=== PATIENT | male | born 1980 | race Caucasian/White ===

== ENCOUNTER 2022-10-27 09:42 | Emergency (ER) | payer OTHER, SELFPAY ==
[2022-10-27] VITALS (11 sets, daily range): BP systolic 110–120; BP diastolic 59–68; PULSE 55–73; RESP 12–20; TEMP 37; O2SAT 92–96; BMI 32.3
--- NOTE | 2022-10-27 09:55 | PC.NURSE ---
patient developed back pain years ago does not recall to attribute it to any injuries. He was playing soft ball yesterday and hurt his back and had to go home and lay on the couch. He had to sleep on his left side all night and states that his pain was 10/10 and sharp when moving. He states that the fentanyl the medics gave him helped
--- NOTE | 2022-10-27 10:11 | ED.BACK ---
HPI - Back Pain/Injury General Chief Complaint: Back Pain/Injury Stated Complaint: Lower back pain Time Seen by Provider: 10/27/22 09:58 Source: patient and EMS Mode of arrival: Ambulatory Limitations: no limitations History of Present Illness HPI Narrative: This is a 42-year-old male with history of gout, chronic asthma and uses CPAP who presents with low back pain. Patient states the day before he was playing softball he felt a tweak in his back and then he participated in a [employer] tank, and when he fell from the bunk take seat he had significant increase in his back pain and has had persistent back pain since then into today. Patient has had a history of chronic back pain typically 2 weeks his back will usually improve over time. He states today's episode is the worse when he is had ever. He states he did not have any trauma or injury otherwise. He states he was assisted to his car and pain continued to worsen overnight. He denies any radiation down his legs, no paresthesias, no loss of bowel or bladder control, no loss of sensation. Patient states he can move his legs but does have increased pain when he moves them. Any sort of movement makes patient very uncomfortable. Patient had ibuprofen last night at 7:45 p.m. he is not had anything additional since then. Patient states he is never had any imaging of his back before. He has had prior surgeries 7 times on his hands and fingers but no prior back surgeries. No known drug allergies. Occasional cigar, occasional alcohol, no illicit. He follows with the [facility] for primary care. Patient came via EMS, received fentanyl EN route which has had improvement in his back pain. Related Data Previous Rx's Medication Instructions Recorded diazepam 10 mg tablet (Valium) 10 mg PO TID PRN muscle spasm #10 10/27/22 tabs meloxicam 7.5 mg tablet 7.5 mg PO BID PRN pain #14 tabs 10/27/22 ondansetron 4 mg disintegrating 4 mg PO Q6H PRN nausea and 10/27/22 tablet vomiting #7 tabs oxycodone 5 mg tablet 5 mg PO Q6H PRN pain #10 tabs 10/27/22 Allergies Allergy/AdvReac Type Severity Reaction Status Date / Time No Known Drug Allergies Allergy Verified 10/27/22 09:51 Review of Systems Review of Systems ROS Unobtainable: All systems reviewed & are unremarkable except as noted in HPI and below Patient History Social History Smoking Status: Current some day smoker Smoking Status: Current some day smoker tobacco type: cigars alcohol intake frequency: 0-2 drinks per day Substance Use Type: does not use Exam Narrative Exam Narrative: GENERAL: Alert and oriented x three, obese male in moderate distress HEENT: Head normocephalic, atraumatic, EOMI, pupils reactive, face symmetric, moist mucous membranes NECK: Supple, full range of motion CARDIOVASCULAR: Regular rate and rhythm without murmurs, rubs or gallops. RESPIRATORY: Breath sounds equal bilaterally, no wheezes rales or rhonchi. ABDOMEN: Soft, nontender. Normoactive bowel sounds all 4 quadrants. No guarding or rebound, rigidity, no mass : No CVA tenderness BACK: No cervical, thoracic or lumbar vertebral point tenderness. Patient has decreased range of motion of the back, he is most comfortable lying on his side.. Rectal exam is deferred. Muscle strength is 5/5 in lower extremities, DTRs are 2/4 and lower extremities. Dorsalis pedis and tibialis pulses are 2+ and lower extremities. Sensation is intact in the lower extremities. 2+ EXTREMITIES: Normal range of motion, no clubbing or edema. Neurovascularly intact NEUROLOGICAL: Cranial nerves II through XII grossly intact. Moving all extremities SKIN: Warm, dry, no petechiae, no rashes or lesions. Initial Vital Signs Initial Vital Signs: Vital Signs Temperature 98.6 F 10/27/22 09:46 Pulse Rate 67 10/27/22 09:46 Respiratory Rate 20 10/27/22 09:46 Blood Pressure 120/68 10/27/22 09:46 Pulse Oximetry 96 10/27/22 09:46 Oxygen Delivery Method Room Air 10/27/22 09:46 Course Orders Ordered: ED Orders 10/27/22 10:24 XR lumbar spine 2-3V Stat Discontinued Medications Hydrocodone Bitart/Acetaminophen (Hydrocodone/Acet 5/325 Tablet) 2 tab PO NOW ONE Stop: 10/27/22 13:19 Last Admin: 10/27/22 13:39 Dose: 2 tab Documented By: JOSE Diazepam (Diazepam 5 Mg Tablet) 10 mg PO NOW ONE Stop: 08/11/23 10:25 Last Admin: 10/27/22 10:45 Dose: 10 mg Documented By: JOSE Ketorolac Tromethamine (Ketorolac 30 Mg/Ml Vial) 15 mg IV NOW ONE Stop: 10/27/22 10:25 Last Admin: 10/27/22 10:45 Dose: 15 mg Documented By: JOSE Vital Signs Vital signs: Vital Signs - 8 hr 10/27/22 11:30 10/27/22 12:00 10/27/22 12:30 Pulse Rate 63 60 55 L Respiratory Rate Blood Pressure Pulse Oximetry 92 93 94 Oxygen Delivery Method 10/27/22 13:00 10/27/22 13:30 10/27/22 14:19 Pulse Rate 65 63 73 Respiratory Rate 12 Blood Pressure 119/66 Pulse Oximetry 96 94 95 Oxygen Delivery Method Room Air MDM - Back Pain/Injury Imaging Data Lumbar xray: Radiologist's Impression: [address] [address] XRay Report Signed Patient: Neo Patterson MR#: [id number] : 1980 Acct:[id number] Age/Sex: 42 / M Date of Service: 10/27/22 Loc: ED Accession Number: [id number] ?? Procedure: XR lumbar spine 2-3V Ordering Provider: Melyssa Hair D.O. PROCEDURE:? XR LUMBAR SPINE 2-3V ? INDICATIONS:? acute on chronic lbp, no prior imaging ? TECHNIQUE:? 3 views of the lumbar spine were acquired.? ? COMPARISON:? None. ? FINDINGS:? ? Bones:? 5 [id number] vertebrae are present.? There is normal bony alignment.? No vertebral body compression fractures.? No suspicious bony lesions.? Mild degenerative disc disease at L4-L5 and L5-S1. ? Soft tissues:? Overlying bowel gas pattern is normal.? No suspicious soft tissue calcifications.? ? ? IMPRESSION:? ? 1. No acute osseous abnormality. 2. Mild degenerative disc disease. ? ? Dictated by: Satish Odom M.D. on 10/27/2022 at 11:45 ? ? Approved by: Satish Odom M.D. on 10/27/2022 at 11:46?? MDM Narrative Medical decision making narrative: 42-year-old male comes to the emergency department with the acute on chronic low back pain. Patient does not have any red flag symptoms he has never had imaging in the past so will have a screening lumbar x-ray. Received fentanyl which was helpful in route, does not have any paresthesias or other saddle anesthesia or weakness with normal strength sensation and neurovascularly intact. Patient given additional Toradol as well as muscle relaxer. Lumbar spine xray shows some degenerative change no other acute abnormalities. Patient has had some improvement with Toradol and Valium. He still has some discomfort is improved. Will give additional dose of oral pain medication, discharged home. Patient was feeling nauseated after pain medications so was given a prescription for Zofran. Quite uncomfortable did use a walker to ambulate out but was able to. Discussed with patient plan for discharge home with pain management, follow up with primary care, reviewed red flag symptoms with patient and his as well for return precautions. Patient family feel comfortable with this plan. Discharge Plan Departure Patient Disposition: Home Clinical Impression: Low back pain Instructions: DI for Low Back Pain Activity Restrictions/Additional Instructions: Follow-up with your physician in the next week for recheck if your symptoms have not significantly improved. If you are having persistent recurrent back pain they may refer you for physical therapy. You may take Tylenol up to a 1000 mg every 6 hours. You may take meloxicam 1 tablet every 12 hours as needed for pain. Do not take other NSAIDs such as ibuprofen, leave or naproxen with this medication. You may take Valium 1 tablet every 8 hours as needed for muscle spasm. This medication can make you sleepy do not drive, perform hazardous activities or make any major decisions while taking it. Prescription sent to [facility] in [place]. Please return for rapidly worsening symptoms, uncontrolled pain, new weakness, loss of sensation, loss of bowel or bladder control, mA to lift or move your extremities or other new or concerning changes. Prescriptions: New diazepam [Valium] 10 mg tablet 10 mg PO TID PRN (Reason: muscle spasm) Qty: 10 0RF oxycodone 5 mg tablet 5 mg PO Q6H PRN (Reason: pain) Qty: 10 0RF meloxicam 7.5 mg tablet 7.5 mg PO BID PRN (Reason: pain) Qty: 14 0RF ondansetron 4 mg tablet,disintegrating 4 mg PO Q6H PRN (Reason: nausea and vomiting) Qty: 7 0RF Stand Alone Forms: Patient Portal/API
--- NOTE | 2022-10-27 10:24 | DI.RAD.S_ITS ---
PROCEDURE: XR LUMBAR SPINE 2-3V INDICATIONS: acute on chronic lbp, no prior imaging TECHNIQUE: 3 views of the lumbar spine were acquired. COMPARISON: None. FINDINGS: Bones: 5 [id number] vertebrae are present. There is normal bony alignment. No vertebral body compression fractures. No suspicious bony lesions. Mild degenerative disc disease at L4-L5 and L5-S1. Soft tissues: Overlying bowel gas pattern is normal. No suspicious soft tissue calcifications. IMPRESSION: 1. No acute osseous abnormality. 2. Mild degenerative disc disease. Dictated by: Satish Odom M.D. on 10/27/2022 at 11:45 Approved by: Satish Odom M.D. on 10/27/2022 at 11:46
[2022-10-27] MEDS: diazePAM 5 MG TABLET 10 MG PO (10:45)
[2022-10-27] MEDS: KETOROLAC 30 MG/ML VIAL 15 MG IV (10:45)
[2022-10-27] MEDS: HYDROCODONE/ACET 5/325 TABLET 2 TAB PO (13:39)
== END 2022-10-27 14:21 | disposition home or self-care (01) ==
PROVIDERS: Emergency Provider Emergency Medicine
DX: M54.50 Low back pain, unspecified (principal)
CPT/HCPCS: 72100; 96374; 99284; J1885

== ENCOUNTER 2023-11-29 21:36 | Emergency (ER) | payer OTHER, SELFPAY ==
[2023-11-29 21:45] VITALS: BP 144/86; PULSE 71; RESP 16; TEMP 37.2; O2SAT 96; BMI 33.0
--- NOTE | 2023-11-29 22:04 | DI.RAD.S_ITS ---
PROCEDURE: XR KNEE RT 3V INDICATIONS: pain/hurts to bend and walk TECHNIQUE: 3 views of the knee were acquired. COMPARISON: None. FINDINGS: Bones: No fractures or dislocations. No suspicious bony lesions. Soft tissues: Small joint effusion. No suspicious soft tissue calcifications. IMPRESSION: No fracture identified. Small joint effusion. Dictated by: Mac Montiel M.D. on 11/29/2023 at 22:37 Approved by: Mac Montiel M.D. on 11/29/2023 at 22:37
[2023-11-29] MEDS: KETOROLAC 30 MG/ML VIAL IM (22:07)
--- NOTE | 2023-11-30 00:21 | ED.EXTPRO ---
HPI - Extremity Problem General Chief complaint: Extremity Problem,Nontraumatic Stated complaint: rt knee pain, no known injury Time Seen by Provider: 11/30/23 00:05 Source: patient Mode of arrival: Wheelchair History of Present Illness HPI Narrative: 43-year-old male history of gout on allopurinol who presents with complaint of right knee pain worsening last night into today. Hurts to bend, weightbear and fully straighten it. Sitting still is the most comfortable position with a flexed. Most painful to fully straight. Patient states not weak but is uncomfortable. Two days ago had a stationary bike ride and he felt tired afterwards but has felt that way before pain has increased since then. Tried diclofenac cream without any improvement. Patient states he has had history of gout in his feet but states it feels very much different. Denies any fevers, no chest pain or shortness of breath no GI or urinary symptoms. States pain seems to be localized to the joint itself but also a little bit off to the right in the lateral portion. Patient has had prior joint issues with his left knee and developed irritation that was not clearly having a source in the past but not on the left side. He does not recall any other injury. Patient states no prior surgery to the knee. Occasional tobacco, occasional alcohol, no recreational drugs. Related Data Previous Rx's Medication Instructions Recorded diazepam 10 mg tablet (Valium) 10 mg PO TID PRN muscle spasm #10 10/27/22 tabs meloxicam 7.5 mg tablet 7.5 mg PO BID PRN pain #14 tabs 10/27/22 ondansetron 4 mg disintegrating 4 mg PO Q6H PRN nausea and 10/27/22 tablet vomiting #7 tabs oxycodone 5 mg tablet 5 mg PO Q6H PRN pain #10 tabs 10/27/22 hydrocodone 5 mg-acetaminophen 325 1 tab PO Q6H PRN pain #7 tabs 11/30/23 mg tablet Allergies Allergy/AdvReac Type Severity Reaction Status Date / Time No Known Drug Allergies Allergy Verified 11/29/23 21:57 Review of Systems Review of Systems ROS Unobtainable: All systems reviewed & are unremarkable except as noted in HPI and below Patient History Social History Smoking Status: Current some day smoker Smoking Status: Current some day smoker tobacco type: cigars alcohol intake frequency: 0-2 drinks per day Substance Use Type: does not use Exam Narrative Exam Narrative: GENERAL: Alert and oriented x three, male in mild distress. HEENT: Head normocephalic, atraumatic, EOMI, pupils reactive, face symmetric, moist mucous membranes NECK: Supple, full range of motion EXTREMITIES: Decreased range of motion patient is able to extend his leg but is uncomfortable, he is able to hold it flexed more comfortably but still hurts. No significant swelling right compared to left. Patient has some tenderness over the right lateral knee above the tibial plateau but lateral to the patella. He does not have any bony tender of the foot tib-fib, no tenderness over the patella tendon or patella itself, no tenderness over the quad. Does have discomfort with movement of the knee. No ballotable effusion, no clubbing or edema. Neurovascularly intact, sensation is intact. Cap refill less than 2 seconds. No significant warmth erythema in comparison [id number]. NEUROLOGICAL: Cranial nerves II through XII grossly intact. Moving all extremities SKIN: Warm, dry, no petechiae, no rashes or lesions. Initial Vital Signs Initial Vital Signs: Vital Signs Temperature 99.0 F 11/29/23 21:45 Pulse Rate 71 11/29/23 21:45 Respiratory Rate 16 11/29/23 21:45 Blood Pressure 144/86 H 11/29/23 21:45 Pulse Oximetry 96 11/29/23 21:45 Oxygen Delivery Method Room Air 11/29/23 21:45 Course Orders Ordered: ED Orders 11/29/23 22:04 XR knee RT 3V Stat Discontinued Medications Hydrocodone Bitart/Acetaminophen (Hydrocodone/Acet 5/325 Prepack) 1 bottle MISC DIRECTED ONE Stop: 11/30/23 00:34 Last Admin: 11/30/23 00:41 Dose: 1 bottle Documented By: AB Ketorolac Tromethamine (Ketorolac 30 Mg/Ml Vial) 30 mg IM NOW ONE Stop: 11/29/23 22:05 Last Admin: 11/29/23 22:07 Dose: 30 mg Documented By: BS Vital Signs Vital signs: Vital Signs - 8 hr 11/29/23 21:45 11/30/23 00:49 Temperature 99.0 F Pulse Rate 71 58 L Respiratory Rate 16 16 Blood Pressure 144/86 H 129/70 Pulse Oximetry 96 96 Oxygen Delivery Method Room Air Room Air MDM - Extremity (Nontraumatic) Imaging Data Extremity x-ray #1: Radiologist's Impression: Close Knee X-Ray (Signed) Mac Montiel - 11/29/23 Lumbar Spine X-Ray (Signed) Zoila Odomavelina - 10/27/22 Launch?[address] [address] XRay Report Signed Patient: Neo Patterson MR#: [id number] : 1980 Acct:[id number] Age/Sex: 43 / M Date of Service: 11/29/23 Loc: ED Accession Number: [id number] Procedure: XR knee RT 3V Ordering Provider: Melyssa Hair D.O. PROCEDURE: XR KNEE RT 3V INDICATIONS: pain/hurts to bend and walk TECHNIQUE: 3 views of the knee were acquired. COMPARISON: None. FINDINGS: Bones: No fractures or dislocations. No suspicious bony lesions. Soft tissues: Small joint effusion. No suspicious soft tissue calcifications. IMPRESSION: No fracture identified. Small joint effusion. Dictated by: Mac Montiel M.D. on 11/29/2023 at 22:37 Approved by: Mac Montiel M.D. on 11/29/2023 at 22:37 [facility] Narrative Medical decision making narrative: 43-year-old male increased right knee pain does have a small joint effusion on x-ray. Uses a stationary bike regularly did notice a little bit increased irritation right afterwards the day before then started having increasing pain over the last 24-48 hours. He is able to straighten and flex the knee but is most comfortable flexed. Patient does not have obvious effusion on examination or swelling. No clear warmth or erythema. Has had a history of gout but states not in this location and feels much different has not had any flares and some time. He is on allopurinol daily. Has had joint issues with his opposite knee without clear precipitating event. X-ray shows small joint effusion. Patient had Toradol which was helpful. Discussed with patient would like to do watchful waiting, we will give short course of pain medication, crutches so patient can weightbear as tolerated. Like him to follow up in the next 24-48 hours for recheck particularly if increasing redness or swelling. Patient states he has ability to follow up through the [facility]. Discharge Plan Departure Patient Disposition: Home Clinical Impression: Knee pain, right, Joint effusion Instructions: DI for Knee Pain Activity Restrictions/Additional Instructions: Follow up for recheck if you are not having any improvement of your knee. Can take Tylenol and/or ibuprofen as needed for pain. If in adequate you can take 1-2 tablets of [place] every 6 hours as needed for pain. This medication has Tylenol in it so do not take it with Tylenol. This medication can make you sleepy do not drive, perform hazardous activities or make any major decisions while taking it. This medication will make you constipated please take a stool softener once to twice daily until stools are soft and regular. Prescription sent to [facility] in [place] Please return for fevers, rapidly worsening redness, swelling, pain, new numbness tingling or weakness or other new or concerning changes. Prescriptions: New hydrocodone-acetaminophen 5-325 mg tablet 1 tab PO Q6H PRN (Reason: pain) Qty: 7 0RF No Action diazepam [Valium] 10 mg tablet 10 mg PO TID PRN (Reason: muscle spasm) Qty: 10 0RF oxycodone 5 mg tablet 5 mg PO Q6H PRN (Reason: pain) Qty: 10 0RF meloxicam 7.5 mg tablet 7.5 mg PO BID PRN (Reason: pain) Qty: 14 0RF ondansetron 4 mg tablet,disintegrating 4 mg PO Q6H PRN (Reason: nausea and vomiting) Qty: 7 0RF Referrals: Shalonda Miller ARNP [Primary Care Provider] - Stand Alone Forms: Patient Portal/API
[2023-11-30] MEDS: HYDROCODONE/ACET 5/325 PREPACK 1 BOTTLE MISC (00:41)
[2023-11-30 00:49] VITALS: BP 129/70; PULSE 58; RESP 16; O2SAT 96
== END 2023-11-30 00:51 | disposition home or self-care (01) ==
PROVIDERS: Emergency Provider Emergency Medicine; Family Provider Nurse Practitioner Family; PCP Nurse Practitioner Family
DX: M25.561 Pain in right knee (principal); M25.461 Effusion, right knee
CPT/HCPCS: 73562; 96372; 99283; J1885

== ENCOUNTER 2023-12-10 08:15 | Outpatient (RCR) | payer OTHER, SELFPAY ==
--- NOTE | 2023-10-12 11:53 | OT.OPPOC ---
Physical, Occupational & Speech Therapy At [facility] Neo Patterson [id number] 1980 Visit Care Team Role Provider Type HANSEL Coe Attending Provider Non-Staff Family Provider Primary Care Provider Referring Provider Address: [address] [place], [address] Occupational Therapy Plan of Care OT Outpatient Adult Evaluation Start: 10/12/23 08:03 Freq: Status: Active Protocol: Document 10/12/23 08:05 BRAYDEN (Rec: 10/12/23 08:09 BRAYDEN [id number]) General Information - Adult Visit Information Visit Number 03/30 Plan of Care Dates 10/12/23 - 12/07/23 Insurance Information Prime, 12 visits Session Time Visit Start Date 10/12/23 Visit Start Time 08:15 Visit Stop Time 09:00 Setting Treatment Setting Outpatient Care Visit Type Note Type Initial Evaluation Referral Referring Physician Shalonda Miller Reason for Referral pain in R lateral wrist Identification Identification Confirmed Yes Patient Questionnaires Quick Dash- Upper Extremity Quick Dash UE Score 6.8 Quick Dash UE Impairment 1 to 19% Impaired (Score 1-19) Quick Dash- Work and Sports Modules Quick Dash W&S Score 6.25 Quick Dash Work and Sport Impairment 1 to 19% Impaired (Score 1-19) Goals Treatment Treatment Pt was educated on tband exercises for wrist extension and radial deviation. Education provided for performing with relaxed digits . Tc and demonstration required. Pt performs 10x3. Digit extension with rubberband also issued for pt home use. Regrind Mill Operator Goals Regrind Mill Operator Goals 1. Pt will increase R wrist strength to 5/5 for improved engagement in daily tasks. 2. Pt will increase R pain free hydro station operator strength by 10# for improved engagement in leisure tasks. 3. Pt will be I with HEP. 4. Pt will report pain at less than 4 throughout daily activity engagement. Assessment/Plan Assessment Patient Response Excellent Rehabilitation Potential Excellent Impairments Identified Body Mechanics,Pain,Weakness, Posture,Recreational Activities,Meaningful Activities Treatment Assessment Pt is 43 yo M with c/o pain for about a year in his R dominant wrist. Pt says it began shortly after moving to the area. He first noticed it when pushing himself up off of the floor while unpacking. This continues to be painful as well as with fisted twisting motions. Pt reports that his pain does not linger, it is quick and sharp. Pt reports that pain starts medially and then goes throughout his wrist. On initial injury, pt bought a splint and wore it most of the day and then transitioned into evenings only. He reports he hasn?t used the splint in about 10 months. He has used it intermittently if he?s had a ?nagging sort of day?. Pt has had a negative x -ray of R wrist. Pt denies significant Pmhx, other than multiple trigger finger releases. He has had the R 1st, 2nd, and 3rd digits and L 1st-4th digits released . Currently, pt continues to c/o pain when pushing up from a surface or with twisting motion. Pain does not occur every time. His pain is sharp , beginning laterally distal to the ulnar styloid and spreading throughout his wrist . Activities such as turning a andres and twisting a door knob increase pt?s pain. Pt says that playing golf occasionally causes pain. Pt reports no pain with work tasks. During eval, pt demonstrates pain with fisted radial deviation. AROM: WNL, dart throwers position WNL MMT: wrist extension 4-/5, radial deviation 4-/5; otherwise all MMT WNL. Senior Database Engineer: R 75#, 73#, 80# (avg 76# ), L 75#, 78#, 75# (avg 76#) Lateral pinch: R 24#, L21#; pincer R 17#, L15#; 3 jaw R 19 #, L 15# No edema or sensory deficits noted. Pain on palpation of anterio-lateral wrist distal to ulna. Pt rates pain as 4-6/10. Skilled OT services are appropriate to address pt's deficits and promote return to PLOF for R dominant hand. Plan Length of treatment (weeks) 8 Plan of Care Start Date 10/12/23 Plan of Care End Date 12/07/23 Comment 1-2x/wk Treatment Duration 45 Minutes Therapeutic Contents Client Education,Functional Activities,Home Exercise Program,Joint Protection, Manual Therapy,Education, Neuromuscular Re-Education, Stretching/Flexibility Activities,Therapeutic Activities,Therapeutic Exercises,Modalities Modalities As Needed Types of Modalities Contrast Bath,Cyrotherapy,Ice Massage Patient Instruction Home Exercise Program,Plan of Care,Questions/Concerns Functional Wrist/Hand Scan Hand Side Sensory Assessment Sensory Profile2 Electronically Signed by: Flory Vuong OT 10/12/23 6055 If you are in agreement with this Plan of Care, please return a signed and dated copy. I have reviewed this Plan of Care and certify that the skilled therapy services above are required to meet the patient?s needs. Physician Signature Date Printed Name and Credentials Clinical Instructor Signature Printed Name and Credentials
--- NOTE | 2023-10-17 11:43 | OT.OP.TRT ---
Visit Care Team Role Provider Type HANSEL Coe Attending Provider Non-Staff Family Provider Primary Care Provider Referring Provider Specialty: Nursing Address: [address] [place] [address], [id number] Email: Occupational Therapy Treatment Note OT Outpatient Treatment Note - Adult Start: 10/12/23 08:03 Freq: Status: Active Protocol: Document 10/17/23 09:00 BRAYDEN (Rec: 10/17/23 07:30 WILLIAMANASTACIO [id number]) OT Outpatient Adult Treatment Note Session Time Visit Start Date 10/17/23 Visit Start Time 09:00 Visit Stop Time 09:35 Visit Information Visit Number 03/30 Plan of Care Dates 10/12/23 - 12/07/23 Insurance Information Prime, 12 visits Setting Treatment Setting Outpatient Care Visit Type Note Type Treatment Note - Subjective Identification Type Name Identification Reconciled With Medical Record Observations Pt reports that theraband exercises for wrist extension and radial deviation provided provocation. Pt reports having dull pain with movement for a few hours following exercises . No pain during exercises. OT d/c exercises and provided new. - Objective Objective Measurements FCU resistance and stretch test -, ECU resistance and stretch test -, ulnar carpal stress test -, ulnar fovea sign -, DRUJ shift and ballottement test -, ulnar snuff box - ECU tendon tender on palpation Fci Goals 1. Pt will increase R wrist strength to 5/5 for improved engagement in daily tasks. 2. Pt will increase R pain free bulk pigment reducer strength by 10# for improved engagement in leisure tasks. 3. Pt will be I with HEP. 4. Pt will report pain at less than 4 throughout daily activity engagement. - Treatment 2 Descriptor isometric wrist flexion and ulnar deviation issued, pt demonstrates x5 reps each tband (L3) wrist flexion and ulnar deviation issued, pt demonstrates x5 reps each 1 Descriptor digit extension with light green resistance x20 Manual Therapy Manual Therapy transverse massage to ECU tendon insertion. STM active release technique for ECU. - Assessment Patient Response to Treatment Excellent Rehabilitation Potential Excellent Impairments Identified Body Mechanics,Pain,Weakness, Posture,Recreational Activities,Meaningful Activities,Soft Tissue Mobility Progress Towards Goals Good Progress Assessment of Overall Progress Improving Assessment of Improvement Pt arrived to OT session with c/o provocated pain from initial exercises. OT performed additional special tests. Pt seems to present with ECU injury. Pt tolerated transverse massage as well as STM of ECU. OT educated pt on activity modification to prevent provocation of R medial wrist pain. Specifically, OT has asked pt to stop pushing himself up from the floor/surface or twisting tasks with R hand. OT has recommend keeping his wrist neutral and to reduce excessive flexion and ulnar deviation. Pt demonstrates exercises well, will continue to assess I with HEP at future visit. Pt remains appropriate for skilled OT services, cont per established POC. Home Exercise Program OT issued pt isometric wrist flexion and ulnar deviation HEP to be progressed to tband wrist flex and ulnar deviation as tolerated with respect to pain. Reviewed with Patient/Caregiver Goals,Progress Being Made,Home Exercise Program Patient/Caregiver Understanding Excellent - Plan Therapeutic Contents Client Education,Functional Activities,Home Exercise Program,Joint Protection, Manual Therapy,Education, Neuromuscular Re-Education, Stretching/Flexibility Activities,Therapeutic Activities,Therapeutic Exercises,Modalities Types of Modalities Contrast Bath,Cyrotherapy,Ice Massage
--- NOTE | 2023-10-31 08:12 | OT.OP.TRT ---
Visit Care Team Role Provider Type HANSEL Coe Attending Provider Non-Staff Family Provider Primary Care Provider Referring Provider Specialty: Nursing Address: [address] [place] [address], [id number] Email: Occupational Therapy Treatment Note OT Outpatient Treatment Note - Adult Start: 10/12/23 08:03 Freq: Status: Active Protocol: Document 10/31/23 07:30 BRAYDEN (Rec: 10/31/23 07:23 BRAYDEN [id number]) OT Outpatient Adult Treatment Note Session Time Visit Start Date 10/31/23 Visit Start Time 07:30 Visit Stop Time 08:10 Visit Information Visit Number 05/28 Plan of Care Dates 10/12/23 - 12/07/23 Insurance Information [facility], 12 visits Setting Treatment Setting Outpatient Care Visit Type Note Type Treatment Note - Subjective Identification Type Name Identification Reconciled With Medical Record Observations Pt reports that he has been having some tenderness with his HEP. Pt reports no increase in pain and tenderness during tx session. Patient/Caregiver Compliance with Home Excellent Exercise Program - Objective Objective Measurements 92#, 81#, 85# (avg 86#) Mcc Goals 1. Pt will increase R wrist strength to 5/5 for improved engagement in daily tasks. 2. Pt will increase R pain free supervisor benzene refining strength by 10# for improved engagement in leisure tasks. MET 10/31/23 3. Pt will be I with HEP. 4. Pt will report pain at less than 4 throughout daily activity engagement. - Treatment 4 Descriptor Proprioception: wiffle ball with marbles neutral wrist position CW and CCW x 60 seconds 3 Descriptor free weight: wrist flexion 2# 10x3 ulnar deviation 2# 10x3 2 Descriptor isometric wrist flexion and ulnar deviation issued, pt demonstrates x5 reps each tband (L3) wrist flexion and ulnar deviation issued, pt demonstrates x0 reps each 1 Descriptor digit extension with light green resistance x30 Manual Therapy Manual Therapy transverse massage to ECU tendon insertion. STM active release technique for ECU. - Assessment Patient Response to Treatment Excellent Rehabilitation Potential Excellent Impairments Identified Body Mechanics,Pain,Weakness, Posture,Recreational Activities,Meaningful Activities,Soft Tissue Mobility Progress Towards Goals Good Progress Assessment of Overall Progress Improving Assessment of Improvement Pt arrived to therapy with c/o of increased tenderness for 1 hour following HEP. Pt has been performing his HEP twice as often as requested. OT had pt demonstrate his isometric. Pt was performing with max tolerated resistance. OT re- educated on the purpose of isometric strengthening and asked pt to use approximately 50% of the force he was performing these at. Pt continues to tolerate transverse massage as well as STM of ECU. Pt has met LTG #2 . Pt remains appropriate for skilled OT services, cont per established POC. Reviewed with Patient/Caregiver Goals,Progress Being Made,Home Exercise Program Patient/Caregiver Understanding Excellent - Plan Therapy Recommendations Continue with Current Program Amount of Therapy Recommended 2 Months Comment 1-2x/wk Length of Session 45 Minutes Therapeutic Contents Client Education,Functional Activities,Home Exercise Program,Joint Protection, Manual Therapy,Education, Neuromuscular Re-Education, Stretching/Flexibility Activities,Therapeutic Activities,Therapeutic Exercises,Modalities Types of Modalities Contrast Bath,Cyrotherapy,Ice Massage
--- NOTE | 2023-12-10 08:54 | OT.OP.DC ---
Visit Care Team Role Provider Type HANSEL Coe Attending Provider Non-Staff Family Provider Primary Care Provider Referring Provider Address: [address] [place] [address], [id number] Email: OT Outpatient OT Outpatient Adult Evaluation Start: 10/12/23 08:03 Freq: Status: Active Protocol: Document 10/12/23 08:05 TRACYMERIADILSONABIDA (Rec: 10/12/23 08:09 BRAYDEN [id number]) General Information - Adult Visit Information Visit Number 03/[id number] Plan of Care Dates 10/12/23 - 12/07/23 Insurance Information [facility], 12 visits Session Time Visit Start Date 10/12/23 Visit Start Time 08:15 Visit Stop Time 09:00 Setting Treatment Setting Outpatient Care Visit Type Note Type Initial Evaluation Referral Referring Physician Shalonda Miller Reason for Referral pain in R lateral wrist Identification Identification Confirmed Yes Patient Questionnaires Quick Dash- Upper Extremity Quick Dash UE Score 6.8 Quick Dash UE Impairment 1 to 19% Impaired (Score 1-19) Quick Dash- Work and Sports Modules Quick Dash W&S Score 6.25 Quick Dash Work and Sport Impairment 1 to 19% Impaired (Score 1-19) Goals Treatment Treatment Pt was educated on tband exercises for wrist extension and radial deviation. Education provided for performing with relaxed digits . Tc and demonstration required. Pt performs 10x3. Digit extension with rubberband also issued for pt home use. Fdc Goals Boxing Machine Operator Goals 1. Pt will increase R wrist strength to 5/5 for improved engagement in daily tasks. 2. Pt will increase R pain free computer assistant strength by 10# for improved engagement in leisure tasks. 3. Pt will be I with HEP. 4. Pt will report pain at less than 4 throughout daily activity engagement. Assessment/Plan Assessment Patient Response Excellent Rehabilitation Potential Excellent Impairments Identified Body Mechanics,Pain,Weakness, Posture,Recreational Activities,Meaningful Activities OT Outpatient Treatment Note - Adult Start: 10/12/23 08:03 Freq: Status: Active Protocol: Document 12/10/23 08:17 BRAYDEN (Rec: 12/10/23 08:38 BRAYDEN [id number]) OT Outpatient Adult Treatment Note Session Time Visit Start Date 12/10/23 Visit Start Time 08:15 Visit Stop Time 08:40 - Subjective Identification Type Name Identification Reconciled With Medical Record Observations I'm doing well Pt reports that he's been alternating isometric and free weight strengthening. Pt reports he lifted heavy weights recently and had a little pinch on the ulnar side of his wrist, but reports it didn't last. Patient/Caregiver Compliance with Home Excellent Exercise Program - Objective Objective Measurements Insurance Sales Specialist: R 100#, 95#, 105# (av#) L 90#, 86#, 80# (av.3#) MMT: R wrist 5/5 for flexion, extension, radial deviation, and ulnar deviation Quick Dash 2; Work 0; Sports 0 Boxing Machine Operator Goals 1. Pt will increase R wrist strength to 5/5 for improved engagement in daily tasks. MET 12/10/23 2. Pt will increase R pain free computer assistant strength by 10# for improved engagement in leisure tasks. MET 10/31/23 3. Pt will be I with HEP. 12/09 4. Pt will report pain at less than 4 throughout daily activity engagement. 12/10/23 - Treatment 3 Descriptor free weight: wrist flexion 2# 10x3 ulnar deviation 2# 10x3 - Assessment Patient Response to Treatment Excellent Rehabilitation Potential Excellent Impairments Identified Body Mechanics,Pain,Weakness, Posture,Recreational Activities,Meaningful Activities,Soft Tissue Mobility Progress Towards Goals Good Progress Assessment of Overall Progress Improving Assessment of Improvement Pt was pleasant and cooperative throughout treatment session today. Pt reports and demonstrates I with HEP. Pt reports that he no longer has any pain with turning motions (ex door knob) or when pushing up from a surface. Pt reports no pain throughout treatment session and reports only a pinch at the ulnar side of his wrist with recent overhead weight lifting. Pt reports pinch did not last. Insurance Sales Specialist: R 100#, 95#, 105# (av#) L 90#, 86#, 80# (av.3#) MMT: R wrist 5/5 for flexion, extension, radial deviation, and ulnar deviation Quick Dash 2; Work 0; Sports 0 Reviewed with Patient/Caregiver Goals,Progress Being Made,Home Exercise Program Patient/Caregiver Understanding Excellent - Plan Therapy Recommendations Discharge to Home Exercise Program Additional Therapy Recommendations Pt has made excellent progress with skilled OT services. Pt is at [facility].
== END 2023-12-14 08:45 | disposition home or self-care (01) ==
LOC: OT 08:15
PROVIDERS: Family Provider Nurse Practitioner Family; PCP Nurse Practitioner Family; Referring Provider Nurse Practitioner Family; Visit Provider Nurse Practitioner Family
DX: M25.531 Pain in right wrist (principal)
CPT/HCPCS: 97110; 97140; 97165

== ENCOUNTER 2024-05-03 10:42 | Emergency (ER) | payer OTHER, SELFPAY ==
[2024-05-03 10:47] VITALS: BP 153/92; PULSE 57; RESP 15; TEMP 36.3; O2SAT 97; BMI 33.9
--- NOTE | 2024-05-03 11:38 | ED.BACK ---
HPI - Back Pain/Injury <Valarie Norton PA-C - Last Filed: 05/03/24 12:01> General Chief Complaint: Back Pain/Injury Stated Complaint: back pain Time Seen by Provider: 05/03/24 11:04 History of Present Illness HPI Narrative: This is a 44-year-old male with a history of chronic back pain who presents with concern for low back pain since Sunday 6 days ago. Patient states that all he did was lift his left leg up a little bit and he suddenly felt a tweak or twinge in his mid lumbar back where he has previously had back pain in the past. Since that time he has had a dull pain there that he describes as about a 3 at rest which is worse with standing up and certain movements. About a year and a half ago when he had a severe episode of back pain he was given a walker and he has been using this most of the week. He continued to go to work and just ?hobbled long?. As he has primarily a desk job. He denies any recent fevers, illness, one-sided weakness, numbness or tingling of his extremities, saddle paresthesia or other symptoms. He states he has been treating with ibuprofen which has been somewhat helpful as well as diclofenac gel and sometimes lidocaine patches. He notes he is low on lidocaine patches and he and his acknowledged that they mostly came in today to try to get some muscle relaxers as he just ran out of the prescription for Flexeril that he has been given previously by his PCP. He does state that this has been helpful and he would be happy with this today. Denies any recent injury or heavy lifting. He does state in the past when he has had flare-ups of back pain he has been helped by physical therapy. He also states that with previous evaluations he has been advised that his pain is typically due to muscle tightness and spasming. Related Data Previous Rx's Medication Instructions Recorded diazepam 10 mg tablet (Valium) 10 mg PO TID PRN muscle spasm #10 10/27/22 tabs meloxicam 7.5 mg tablet 7.5 mg PO BID PRN pain #14 tabs 10/27/22 ondansetron 4 mg disintegrating 4 mg PO Q6H PRN nausea and 10/27/22 tablet vomiting #7 tabs oxycodone 5 mg tablet 5 mg PO Q6H PRN pain #10 tabs 10/27/22 hydrocodone 5 mg-acetaminophen 325 1 tab PO Q6H PRN pain #7 tabs 11/30/23 mg tablet cyclobenzaprine 10 mg tablet 10 mg PO TID PRN muscle spasm 10 05/03/24 days #30 tabs lidocaine 5 % topical patch 1 patch topical DAILY 15 days #15 05/03/24 ea Allergies Allergy/AdvReac Type Severity Reaction Status Date / Time No Known Drug Allergies Allergy Verified 05/03/24 10:47 Review of Systems <Valarie Norton PA-C - Last Filed: 05/03/24 12:01> Review of Systems Narrative: See HPI Patient History <Valarie Norton PA-C - Last Filed: 05/03/24 12:01> Social History Smoking Status: Current some day smoker Smoking Status: Current some day smoker tobacco type: cigars alcohol intake frequency: 0-2 drinks per day Exam <DEEPA Durham Last Filed: 05/03/24 12:01> Narrative Exam Narrative: GENERAL: [44] year old patient appears stated age. Well-developed patient, in mild distress. Patient ambulating slightly slowly with a walker. When standing at rest hips and low back are slightly shifted. HEAD: Atraumatic. Normocephalic. EYES: Pupils equal round and reactive. Extraocular motions intact. No scleral icterus. No injection or drainage. ENT: Nose without bleeding, purulent drainage. Airway patent. NECK: Trachea midline. Non tender RESPIRATORY: No increased work of breathing or respiratory distress EXTREMITIES: No edema or joint tenderness. He is able to bear weight independently on each leg while supporting himself with an arm. Strength of the lower extremities is intact 5/5. He has slight increased low back discomfort with flexion and extension of the hip and knee. BACK: There is mild midline tenderness at proximally L3-4. There are very tight paraspinal muscles in the lumbar region. Otherwise back is Nontender without deformity or crepitance. No flank tenderness. NEURO: AOx3. SKIN: No rash or erythema of visible areas Initial Vital Signs Initial Vital Signs: Vital Signs Temperature 97.3 F L 05/03/24 10:47 Pulse Rate 57 L 05/03/24 10:47 Respiratory Rate 15 05/03/24 10:47 Blood Pressure 153/92 H 05/03/24 10:47 Pulse Oximetry 97 05/03/24 10:47 Oxygen Delivery Method Room Air 05/03/24 10:47 <Claribel Navarro DO - Last Filed: 05/04/24 08:49> Initial Vital Signs Initial Vital Signs: Vital Signs Temperature 97.3 F L 05/03/24 10:47 Pulse Rate 57 L 05/03/24 10:47 Respiratory Rate 15 05/03/24 10:47 Blood Pressure 153/92 H 05/03/24 10:47 Pulse Oximetry 97 05/03/24 10:47 Oxygen Delivery Method Room Air 05/03/24 10:47 Course <Valarie Norton PA-C - Last Filed: 05/03/24 12:01> Vital Signs Vital signs: Vital Signs - 8 hr 05/03/24 10:47 Temperature 97.3 F L Pulse Rate 57 L Respiratory Rate 15 Blood Pressure 153/92 H Pulse Oximetry 97 Oxygen Delivery Method Room Air <DO Magnus Dominguez Last Filed: 05/04/24 08:49> Vital Signs Vital signs: Vital Signs - 8 hr 05/03/24 10:47 Temperature 97.3 F L Pulse Rate 57 L Respiratory Rate 15 Blood Pressure 153/92 H Pulse Oximetry 97 Oxygen Delivery Method Room Air MDM - Back Pain/Injury <DEEPA Durham Last Filed: 05/03/24 12:01> Differential Diagnosis Differential diagnosis: Likely lumbar radiculopathy, sciatica, strain of lumbar region and other (muscle spasm, acute on chronic back pain) Medical Records Attestation: I reviewed the patient's medical records. [facility] Narrative Medical decision making narrative: This is a 44-year-old patient with a history of chronic intermittent low back pain presenting with concern for acute on chronic low back pain since Sunday 6 days ago. Patient has no red flags. Endorses that this episode is much less severe than when he had about a year and half ago. He and his are hoping he can get some Flexeril as he recently ran out of this. Patient's exam is consistent with muscle strain/spasming. Reviewed his chart and previous visits including for back pain as well as reviewed patient's previous lumbar x-ray. Based on mechanism that triggered his current episode of pain I do not feel imaging is indicated today. Exam also does not suggest imaging is indicated. Prescription for lidocaine patches as well as 10 day prescription for Flexeril. Return precautions provided, follow-up plan discussed, all questions answered. Discharge Plan Departure Patient Disposition: Home Clinical Impression: Muscle spasm Strain of lumbar region Qualifiers: Encounter type: initial encounter Qualified Code(s): S39.012A - Strain of muscle, fascia and tendon of lower back, initial encounter Instructions: DI for Muscle Strain Activity Restrictions/Additional Instructions: *You have been diagnosed with [back muscle strain/muscle spasm] *What to do: *Please continue to take your regular medications as directed. [1 ] New medication prescriptions sent to your pharmacy: [Flexeril (cyclobenzaprine)] [ ] New medication written as a paper prescription [ ] No new medications given *Please follow up with your primary care provider in 2-3 days, call for an appointment. Let them know you were seen in the Emergency Department and that we ask that you be seen in follow up. We will electronically transmit a record of today's note if your PCP is in our system. Your back started acting up on Sunday of this week and you came into the ER today with concern for tight muscles and change in your stance related to your acute on chronic back pain. It sounds like ibuprofen has been somewhat helpful for you. You can continue this please make sure you do not take more than the recommended daily amount each day. You can also continue lidocaine and diclofenac gel if you feel these are helpful. Additionally I have prescribed a 10 day course Flexeril for you as this has been helpful for you in the past too. I did prescribe additional lidocaine patches as well. If you are not currently trying it you may want to consider taking Tylenol as this can also be helpful for pain, less so for inflammation but combined with ibuprofen is often more effective than just ibuprofen I [place]. If you develop any new worsening or concerning symptoms please make sure you get re-evaluated. Otherwise hopefully your symptoms will be improving and resolve within 2-3 weeks of when they began. I hope that you are feeling better soon. *If you do not have a primary care provider please contact the [facility] Resource line at [phone]. They will ask some questions about your medical history and help get you set up with a doctor in the community. *Return to Emergency Department if you should have any new, worsening or concerning symptoms, such as [fever greater than 101 F, shaking chills, worsening pain, persistent vomiting or other bothersome symptoms] Prescriptions: New cyclobenzaprine 10 mg tablet 10 mg PO TID PRN (Reason: muscle spasm) 10 Days Qty: 30 0RF lidocaine 5 % adhesive patch,medicated 1 patch topical DAILY 15 Days Qty: 15 0RF Rx Instructions: leave on most painful area for up to 12 hrs No Action diazepam [Valium] 10 mg tablet 10 mg PO TID PRN (Reason: muscle spasm) Qty: 10 0RF oxycodone 5 mg tablet 5 mg PO Q6H PRN (Reason: pain) Qty: 10 0RF meloxicam 7.5 mg tablet 7.5 mg PO BID PRN (Reason: pain) Qty: 14 0RF ondansetron 4 mg tablet,disintegrating 4 mg PO Q6H PRN (Reason: nausea and vomiting) Qty: 7 0RF hydrocodone-acetaminophen 5-325 mg tablet 1 tab PO Q6H PRN (Reason: pain) Qty: 7 0RF Referrals: Shalonda Miller COSTUME SPECIALIST [Primary Care Provider] - Stand Alone Forms: Patient Portal/API/Survey ED Sign-out <Claribel Navarro DO - Last Filed: 05/04/24 08:49> Cosign ED Attending Henry Attestation: I was available for consultation.
--- NOTE | 2024-05-03 11:46 | PC.NURSE ---
Patient was escorted to room with . Provider went to see patient prior to this esthetician and manager medical spa. Provider states patient doesn't wish to be seen by this RN. Provider confident in their own assessment skills informed this RN and asked that I not assess the patient. Provider performed discharge themselves. This RN had no direct contact with patient our spouse.
== END 2024-05-03 11:50 | disposition home or self-care (01) ==
PROVIDERS: Emergency Provider Student in an Organized Health Care Education/Training Program; Family Provider Nurse Practitioner Family; PCP Nurse Practitioner Family
DX: M62.830 Muscle spasm of back (principal); S39.012A Strain of muscle, fascia and tendon of lower back, initial encounter
CPT/HCPCS: 99281